=== PATIENT | female | born 1970 | race Hispanic/Latino ===

== ENCOUNTER 2023-03-18 23:35 | Emergency (ER) | payer OTHER ==
[~2023-03-18] VITALS: Ht 157.5 cm; Wt 72.6 kg
[2023-03-19] MEDS ORDERED: KETOROLAC 60 MG VIAL (30MG/ML) IM ONE ×2 (02:12→02:30)
[2023-03-19] MEDS ORDERED: IBUP-2070 PO (02:57)
[2023-03-19 02:58] VITALS: BP 128/86; PULSE 72; RESP 16; O2SAT 98
== END 2023-03-19 03:13 | disposition home or self-care (01) ==
LOC: EDH 23:35
DX: S52.122A Displaced fracture of head of left radius, initial encounter for closed fracture (principal); S40.021A Contusion of right upper arm, initial encounter; S80.02XA Contusion of left knee, initial encounter; W18.39XA Other fall on same level, initial encounter; Y93.89 Activity, other specified; Y92.89 Other specified places as the place of occurrence of the external cause; Y99.8 Other external cause status
CPT/HCPCS: 99284; 73070; 73090; 96372; J1885